=== PATIENT | female | born 1995 | race American Indian/Alaskan Native ===

== ENCOUNTER 2017-05-15 13:11 | Emergency (ER) | payer BC, OTHER ==
[~2017-05-15] VITALS: Ht 152.4 cm; Wt 70.3 kg
[~2017-05-15 13:11] MED LIST: BACTRIM DS TAB1 EACH PO; CEPACOL SORE T1 EAC5 MM; EXTRA STRENGTH500 MG PO; NORCO 5-325 TA1 EACH PO
== END 2017-05-15 17:09 | disposition home or self-care (01) ==
LOC: ED 13:11
DX: T74.21XA Adult sexual abuse, confirmed, initial encounter (principal); F41.9 Anxiety disorder, unspecified; Z88.1 Allergy status to other antibiotic agents
CPT/HCPCS: 84703; 96372; 99283; J0696

== ENCOUNTER 2017-06-02 02:46 | Emergency (ER) | payer BC, OTHER ==
[~2017-06-02] VITALS: Ht 152.4 cm; Wt 65.8 kg
[2017-06-02] MEDS ORDERED: HYDROXYZINE PAM25 MG PO (03:04)
[2017-06-02] MEDS ORDERED: NORCO 5-325 TA1 EACH PO (04:39)
[2017-06-02] MEDS ORDERED: CIPRO500 MG PO (04:39)
== END 2017-06-02 05:06 | disposition home or self-care (01) ==
LOC: ED 02:46
DX: J06.9 Acute upper respiratory infection, unspecified (principal); N39.0 Urinary tract infection, site not specified; F41.9 Anxiety disorder, unspecified; Z88.8 Allergy status to other drugs, medicaments and biological substances; Z79.899 Other long term (current) drug therapy
CPT/HCPCS: 71010; 80053; 81001; 83605; 84703; 85025; 87077; 87088; 87186; 96361; 96374; 96375; 99284; J0696; J1885; J2405; J3010; J7030

== ENCOUNTER → 2017-08-10 | Emergency (ER) | payer BC, OTHER ==
[~2017-08-10] VITALS: Ht 152.4 cm; Wt 65.8 kg
[~2017-08-10] MED LIST changes: +CIPRO500 MG PO; +HYDROXYZINE PAM25 MG PO
== END ==
LOC: ED 01:59
DX: R10.30 Lower abdominal pain, unspecified (principal); F41.9 Anxiety disorder, unspecified; F17.200 Nicotine dependence, unspecified, uncomplicated; Z88.1 Allergy status to other antibiotic agents
CPT/HCPCS: 80053; 81001; 84703; 85025; 96361; 96374; 96375; 99283; J1170; J1885; J2405; J7030

== ENCOUNTER 2018-04-01 09:37 | Inpatient (IN) | payer BC, OTHER ==
[~2018-04-01] VITALS: Ht 149.9 cm; Wt 74.8 kg
--- NOTE | ~2018-04-01 | OR ---
[facility] [address], [place] [address] Draft DATE OF OPERATION: 04/03/2018 SURGEON: Mitra Portillo DO PREOPERATIVE DIAGNOSES: 1. Term . 2. History of prior . 3. 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 4. History of genital herpes, on prophylaxis without current outbreak. POSTOPERATIVE DIAGNOSES: 1. Term . 2. History of prior . 3. 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 4. History of genital herpes, on prophylaxis without current outbreak. ANESTHESIA: General. ESTIMATED BLOOD LOSS: 700 mL. COMPLICATIONS: None. FINDINGS: Viable male , 7 pounds 8 ounces with Apgars of 8 and 9 at 1 and 5 minutes respectively. Slight omental adhesions to the anterior abdominal wall and adhesions of the rectus to the fascia. There were normal uterus, tubes, and ovaries. DIGITAL MUSIC INSTRUCTOR: Pete Hogue MD INDICATIONS: Ms. 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 Her prior was under general anesthesia and patient requested general anesthesia for her repeat delivery. Preoperative anesthesia consultation was done and agreed with this recommendation. Risks, benefits, alternatives were discussed in detail PATIENT NAME: RIMA RIOS OPERATIVE REPORT DATE OF : [birth year] REPORT #: [id number] PHYSICIAN: MITRA PORTILLO DO PCP: ARELIS THOMPSON MD REPORT IS CONFIDENTIAL AND NOT TO BE RELEASED WITHOUT AUTHORIZATION [facility] [address], [place] [address] Draft with the patient. Patient understands, wishes to proceed with the procedure. TECHNIQUE: The patient was taken to the operating room. Time-out was performed to confirm correct patient and correct procedure. The patient was prepped and draped in the supine position with a bump under her right hip. A Brennan catheter was inserted and Ancef 2 g were given preoperatively. ICPs were on and running and no heparin was indicated. General anesthesia was adequately established and a Pfannenstiel skin incision was made through the prior incision scar. The incision was carried down to the fascia in the midline. The fascia was nicked in the midline and fascial incision was extended bilaterally using Fabian scissors. The rectus muscle was then dissected from the fascia by grasping the fascia with Carlos's elevating using a combination of blunt and sharp dissection. The fascia was quite scarred to the rectus muscle. The rectus muscle was then bluntly divided in the midline and combination of blunt and sharp dissection was used to complete the dissection of the rectus muscle. The peritoneum was then entered bluntly and peritoneal incision was extended bilaterally using blunt dissection. The abdomen was quickly flap with surgeon's hand and small omental adhesions were noted. However, no other adhesions were noted. An Les self retractor was placed and the lower uterine segment was identified. Hysterotomy was performed using a surgical scalpel and clear fluid was noted. The surgeon's hand was placed in the uterine cavity, head elevated and delivered with the assistance of fundal pressure. Nuchal cord x1 was identified and reduced and the remainder of the delivered without difficulty. The oropharynx was bulb suctioned. The cord was doubly clamped and cut and the handed to the waiting Pediatric Team for further care. Cord blood was obtained for routine analysis and the placenta was expressed intact with a centrally inserted three-vessel cord. The uterus was noted to be quite atonic and Pitocin was given to enhance uterine involution. The uterus was cleared of any remaining products of conception and clot and the hysterotomy was repaired using 0 Vicryl in a running locked suture. Methergine x1 dose was given to decrease uterine atony as well. The hysterotomy was then reinforced with a 2nd imbricating suture of 0 Vicryl in a running vertical imbricating stitch with good reapproximation and imbrication. Small amount of oozing was noted. This was made hemostatic with a wfteic-vb-fleer of 0 Vicryl. The uterus was much more contracted at this point and the nurse checked into the drapes to ensure that no bleeding was noted. She was dry underneath the patient. The pelvis was irrigated and found to be hemostatic. Normal uterus, tubes, and ovaries were examined. The Les retractor was removed and the omental adhesions noted. These were well above the peritoneal incision and it was determined these were not interfering and were left in place. Peritoneum was then reapproximated after ACell sheet was applied to the lower uterine segment. Peritoneum was reapproximated with 2-0 Vicryl in a running nonlocked suture. The rectus muscles were then examined and oozing was noted throughout. This was made hemostatic with a combination of Bovie electrocautery, suture ligation, Jaya powder and Evicel. Again, no major bleeding vessels were noted and there was scattered PATIENT NAME: RIMA RIOS OPERATIVE REPORT DATE OF : [birth year] REPORT #: [id number] PHYSICIAN: MITRA PORTILLO DO PCP: ARELIS THOMPSON MD REPORT IS CONFIDENTIAL AND NOT TO BE RELEASED WITHOUT AUTHORIZATION [facility] [address] [place] [address] Draft petechial bleeding throughout. Once this was ensured to be hemostatic, the rectus muscles were loosely reapproximated using 0 Vicryl in three interrupted sutures of 0 Vicryl. The fascia was then reapproximated using 0 Vicryl in a running nonlocked suture. Subcu was reapproximated using 3-0 Vicryl in a running nonlocked stitch. Skin was reapproximated using surgical sandi after ensuring that the subcuticular tissue was hemostatic. The uterus was Crede'd aid for scant amount of bleeding and the patient was taken the PACU in good and stable condition. Sponge, needle and instrument count were correct x2 at the end of the procedure. Dr. Hogue was present and participated in all portions of the procedure. Mitra Portillo DO JYAN/DENNISL /[id number] Copies: ~ PATIENT NAME: RIMA RIOS OPERATIVE REPORT DATE OF : [birth year] REPORT #: [id number] PHYSICIAN: MITRA PORTILLO DO PCP: ARELIS THOMPSON MD REPORT IS CONFIDENTIAL AND NOT TO BE RELEASED WITHOUT AUTHORIZATION
--- NOTE | 2018-04-03 12:52 | NUR ---
04/03/18 1252 Kyleigh Marte 1244 PATIENT ARRIVES TO PACU UNRESPONSIVE TO PAIN OR VERBAL STIMULI. RESP EVEN AND UNLABORED, MASK AT 10 LITERS, DECREASED TO 8 LITERS ON ARRIVAL, SATS 100%. 1247 PATIENT MOANING AND MOVING HEAD. OPENS MOUTH, ORAL AIRWAY REMOVED. MUMBLING, BUT DIFFICULT TO UNDERSTAND, THEN BACK TO SLEEP. RESP EVEN AND UNLABORED, MASK DECREASED TO 6 LITERS.
== END 2018-04-05 13:55 | disposition home or self-care (01) | DRG 765 ==
LOC: FBC 04-03 05:11
PROVIDERS: ADMIT Obstetrics & Gynecology
PROC: 10D00Z1 Extraction of Products of Conception, Low, Open Approach (ICD-10-PCS; principal; 2018-04-03 06:45)
DX: O34.211 Maternal care for low transverse scar from previous cesarean delivery (principal); O98.32 Other infections with a predominantly sexual mode of transmission complicating childbirth; N85.8 Other specified noninflammatory disorders of uterus; O69.81X0 Labor and delivery complicated by cord around neck, without compression, not applicable or unspecified; A60.00 Herpesviral infection of urogenital system, unspecified; O99.344 Other mental disorders complicating childbirth; F41.9 Anxiety disorder, unspecified; O99.52 Diseases of the respiratory system complicating childbirth; J45.909 Unspecified asthma, uncomplicated; Z88.1 Allergy status to other antibiotic agents; Z87.820 Personal history of traumatic brain injury; Z79.899 Other long term (current) drug therapy; Z98.2 Presence of cerebrospinal fluid drainage device; Z3A.39 39 weeks gestation of pregnancy; Z37.0 Single live birth
CPT/HCPCS: 01961; 36415; 85025; 85027; C1763; J0330; J0690; J1100; J1885; J2270; J2405; J2550; J2590; J2704; J2765; J3010; J7040; J7120

== ENCOUNTER 2020-07-16 17:47 | Emergency (ER) | payer BC, OTHER ==
[~2020-07-16] VITALS: Ht 149.9 cm; Wt 81.7 kg
[~2020-07-16 17:47] MED LIST changes: +KEFLEX500 MG PO
[2020-07-16] MEDS ORDERED: AMOXICILLIN500 MG PO (18:27)
== END 2020-07-16 19:01 | disposition home or self-care (01) ==
LOC: ED 17:47
DX: H72.92 Unspecified perforation of tympanic membrane, left ear (principal); Z88.1 Allergy status to other antibiotic agents
CPT/HCPCS: 99282

== ENCOUNTER 2022-07-14 00:48 | Emergency (ER) | payer OTHER, BC ==
[~2022-07-14] VITALS: Ht 149.9 cm; Wt 88.3 kg
[~2022-07-14 00:48] MED LIST changes: +AMOXICILLIN500 MG PO
[2022-07-14] MEDS ORDERED: CITALOPRAM HBR20 MG PO (01:05)
== END 2022-07-14 03:36 | disposition home or self-care (01) ==
LOC: ED 00:48
DX: S00.83XA Contusion of other part of head, initial encounter (principal); W01.10XA Fall on same level from slipping, tripping and stumbling with subsequent striking against unspecified object, initial encounter; Z88.8 Allergy status to other drugs, medicaments and biological substances; Z79.899 Other long term (current) drug therapy
CPT/HCPCS: 70450; 72125; 99284-25

== ENCOUNTER 2022-08-06 17:27 | Emergency (ER) | payer BC, OTHER ==
[~2022-08-06] VITALS: Ht 149.9 cm; Wt 88.0 kg
[~2022-08-06 17:27] MED LIST changes: +CITALOPRAM HBR20 MG PO
--- OUTSIDE RECORDS SUMMARY | 2022-08-06 17:34 | XMS ---
PreManage Notification: RIMA ZARAGOZA Security Health Officer Events No recent Security Events currently on file CRITERIA MET - [facility] - 2 Visits in 30 Days CARE PROVIDERS There are no care providers on record at this time. Ankur has no Care Guidelines for this patient. [facility]12 MO.) [facility] NOTE: Visits indicate total known visits. [facility] [place] VISIT TRACKING (12 MO.) 08/06/2022 17:27 [facility] TYPE: Emergency COMPLAINT: - SPEECH DIFFERENCES 07/14/2022 00:[address] [facility] TYPE: Emergency COMPLAINT: - LACERATION DIAGNOSES: - Other fpc (current) drug therapy - Fall on same level from slipping, tripping and stumbling with subsequent striking against unspecified object, initial encounter - Allergy status to other drugs, medicaments and biological substances - Contusion of other part of head, initial encounter INPATIENT VISIT TRACKING (12 MO.) No inpatient visits to display in this time frame [email or web address]
[2022-08-06] MEDS ORDERED: MACROBID 100 M100 MG PO (19:54)
== END 2022-08-06 20:18 | disposition home or self-care (01) ==
LOC: ED 17:27
DX: G43.109 Migraine with aura, not intractable, without status migrainosus (principal); N39.0 Urinary tract infection, site not specified; Z88.1 Allergy status to other antibiotic agents; Z79.899 Other long term (current) drug therapy
CPT/HCPCS: 70450; 81001; 84703; 87088; 99284-25

== ENCOUNTER 2025-04-21 22:46 | Emergency (ER) | payer OTHER ==
[~2025-04-21] VITALS: Ht 149.9 cm; Wt 78.0 kg
[~2025-04-21 22:46] MED LIST changes: +MACROBID 100 M100 MG PO
[2025-04-21 23:14] LABS: BILIRUBIN, URINE NEGATIVE (negative); BLOOD/HGB, URINE NEGATIVE (Negative); KETONE, URINE TRACE (Negative); LEUK ESTERASE, URINE NEGATIVE (negative); NITRITE, URINE NEGATIVE (negative)
[2025-04-21] MEDS ORDERED: LORazepam 2 MG/ML VIAL IM ONE (23:15)
[2025-04-21] MEDS ORDERED: diphenhydrAMINE HCL 50 MG/ML VIAL IM ONE (23:15)
[2025-04-21] MEDS ORDERED: HALOPERIDOL LACTATE 5 MG/ML VIAL IM ONE (23:15)
[2025-04-21 23:21] LABS: BASOPHILS 0.4 % (0.1-1.2); EOSINOPHILS 1.6 % (0.7-5.8); HEMATOCRIT 43.4 % (34.1-44.9); HEMOGLOBIN 14.8 g/dL (11.2-15.7); LYMPHOCYTES 26.1 % (19.3-51.7); MCH 31.4 PG (25.6-32.2); MCHC 34.1 g/dL (32.2-35.5); MCV 92.1 fL (79.4-94.8); MONOCYTES 6.7 % (4.7-12.5); NEUTROPHILS 64.9 % (34.0-71.1); PLATELET COUNT 257 K/uL (182-369); RBC 4.71 M/uL (3.93-5.22)
[2025-04-21 23:30] LABS: AMPHETAMINES, URINE NEGATIVE (NEGATIVE); BARBITURATES, URINE NEGATIVE (NEGATIVE); BENZODIAZEPINE, URINE NEGATIVE (NEGATIVE); BUPRENORPHINE, URINE NEGATIVE (NEGATIVE); CANNABINOID, URINE NEGATIVE (NEGATIVE); COCAINE, URINE NEGATIVE (NEGATIVE); ECSTASY, URINE NEGATIVE (NEGATIVE); FENTANYL, URINE NEGATIVE (NEGATIVE); METHADONE, URINE NEGATIVE (NEGATIVE); OPIATES, URINE NEGATIVE (NEGATIVE); OXYCODONE, URINE NEGATIVE (NEGATIVE); PHENCYCLIDINE, URINE NEGATIVE (NEGATIVE)
[2025-04-21 23:45] LABS: ACETAMINOPHEN 0 ug/mL (10-30); ALBUMIN 3.8 g/dL (3.4-5.0); ALBUMIN/GLOBULIN RATIO 0.95 (1.1-2.4); ALCOHOL, MEDICAL 132 ng/dL (<3); ALKALINE PHOSPHATASE 110 U/L (46-116); ALT (SGPT) 29 U/L (14-59); ANION GAP 15.5 (7-21); AST (SGOT) 16 U/L (15-37); BILIRUBIN, TOTAL 0.2 mg/dL (0.2-1.0); BUN/CREATININE RATIO 8.33 (6.0-28.6); CALCIUM 8.4 mg/dL (8.5-10.1); CARBON DIOXIDE 28 mmol/L (21-32); CHLORIDE 107 mmol/L (98-107); CREATININE, SERUM 0.96 mg/dL (0.55-1.02); GLOMERULAR FILTRATION RATE,EST 81 mL/min (>60); POTASSIUM 3.5 mmol/L (3.5-5.1); PROTEIN, TOTAL 7.8 g/dL (6.4-8.2); SALICYLATE 1.5 mg/dL (2.8-20.0); TSH, 3RD GENERATION 1.481 uIU/mL (0.358-3.740); UREA NITROGEN 8 mg/dL (7-18)
[2025-04-22 10:39] VITALS: BP 143/105
== END 2025-04-22 10:39 | disposition home or self-care (01) ==
LOC: ED 22:46
PROVIDERS: Family Medicine
DX: R45.851 Suicidal ideations (principal); Z88.8 Allergy status to other drugs, medicaments and biological substances; Z79.899 Other long term (current) drug therapy
CPT/HCPCS: 36415; 80053; 80307; 81003; 84443; 84703; 85025; 96372; 99285; G0480; J1200; J1630; J2060